=== PATIENT | female | born 1985 | race African-American/Black ===

== ENCOUNTER 2016-10-03 19:03 | Emergency (ER) | payer OTHER ==
[~2016-10-03] VITALS: Ht 167.6 cm; Wt 83.9 kg
[2016-10-03 19:26] VITALS: BP 123/73
--- NOTE | 2016-10-03 20:12 | PHYS DOC ---
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 She denies any knee pain or discomfort. She states that she is having pain on the left lateral part of her ankle. She states that she will has not been able to ambulate with a good steady gait as she does have increased pain. She does state that she is capable putting some weight on it. She has taken Tylenol for pain and discomfort. She is able to move her toes without difficulty good sensation noted peripheral pulses 2+. Review of Systems Review of Systems Constitutional: Denies fever or chills [] Eyes: Denies change in visual acuity, redness, or eye pain [] HENT: Denies nasal congestion or sore throat [] Respiratory: Denies cough or shortness of breath [] Cardiovascular: No additional information not addressed in HPI [] GI: Denies abdominal pain, nausea, vomiting, bloody stools or diarrhea [] : Denies dysuria or hematuria [] Musculoskeletal: Denies back pain. Left ankle pain Integument: Denies rash or skin lesions [] Neurologic: Denies headache, focal weakness or sensory changes [] Allergies Allergies Allergies Coded Allergies Type Severity Reaction Last Updated Verified blueberry Allergy Intermediate 05/24/15 Yes shellfish derived Allergy Intermediate 05/24/15 Yes strawberry Allergy Intermediate 05/24/15 Yes Physical Exam Physical Exam Constitutional: Well developed, well nourished, no acute distress, non-toxic appearance. [] HENT: Normocephalic, atraumatic, bilateral external ears normal, oropharynx moist, no oral exudates, nose normal. [] Eyes: PERRLA, EOMI, conjunctiva normal, no discharge. [] Neck: Normal range of motion, no tenderness, supple, no stridor. [] Cardiovascular:Heart rate regular rhythm Lungs & Thorax: No respiratory distress Skin: Warm, dry, no erythema, no rash. [] Back: No tenderness Extremities: Left lateral ankle tenderness, no cyanosis, no clubbing, ROM intact , no edema. No crepitus or deformity noted no discoloration. Patient does have slight swelling. Peripheral pulses 2+ cap refill brisk less than 2 seconds. Good sensation noted to the toes. She is able to move the toes without difficulty. Neurologic: Alert and oriented X 3, normal motor function, normal sensory function, no focal deficits noted. [] Psychologic: Affect normal, judgement normal, mood normal. [] Current Patient Data Vital Signs Vital Signs Date Time Temp Pulse Resp B/P Pulse Ox O2 Delivery O2 Flow Rate FiO2 10/03/16 19:26 97.8 72 18 100 Room Air 97.8 EKG EKG [] Radiology/Procedures Radiology/Procedures [] Course & Med Decision Making Course & Med Decision Making Pertinent Labs and Imaging studies reviewed. (See chart for details) X-ray negative for any fractures per Dr. Subramanian. Patient be placed in Neo wrap and an Air-Stirrup splint. Recommended ice packs on 20 minutes off 20 minutes several times a day elevation as much as possible. Ibuprofen 800 mg every 8 hours with food stop taking few develop an upset stomach. She'll be provided with orthopedic name and number to follow up with. Patient agrees with discharge instructions treatment regimens and follow-up recommendations. [] Dragon Disclaimer Dragon Disclaimer This electronic medical record was generated, in whole or in part, using a voice recognition dictation system. Departure Departure Impression: Primary Impression: Right ankle sprain Disposition: 01 HOME, SELF-CARE Condition: STABLE Referrals: NO PCP (PCP) Patient Instructions: Ankle Sprain, [id number] Additional Instructions: Activity as tolerated. Ibuprofen 800 mg every 8 hours. Ice packs on 20 minutes off 20 minutes several times a day. Elevation as much as possible. Wear the Neo wrap for the next 5-7 days in the Air-Stirrup splint for the next 7 -10 days. Follow-up with orthopedic in the next week. Return back to emergency prior signs symptoms of become worse. JOSE LY [employer] Oct 03, 2016 20:11
[2016-10-03] MEDS ORDERED: IBUPROFEN 800 MG TABLET. PO ONE (20:15)
--- NOTE | 2016-10-04 08:14 | RAD ---
Left ankle, 3 views, 10/03/2016: History: Fall, pain A small well-defined calcific density at the tip of the medial malleolus is probably due to old trauma. No acute fracture or dislocation is identified. The soft tissues are unremarkable. IMPRESSION: 1. Probable old nonunited fracture fragment or accessory ossicle at the tip of the medial malleolus. 2. No acute bony abnormality is detected.
== END 2016-10-03 20:33 | disposition home or self-care (01) ==
LOC: ER 19:03
DX: S93.402A Sprain of unspecified ligament of left ankle, initial encounter (principal); Z91.013 Allergy to seafood; Z91.018 Allergy to other foods; X50.9XXA Other and unspecified overexertion or strenuous movements or postures, initial encounter; Y93.89 Activity, other specified; Y99.8 Other external cause status; Y92.89 Other specified places as the place of occurrence of the external cause
CPT/HCPCS: 73610; 99284